=== PATIENT | male | born 1985 | race Caucasian/White ===

== ENCOUNTER 2016-11-26 23:00 | Inpatient (IN) | payer OTHER ==
--- NOTE | ~2016-11-26 | PA ---
Unit #: [id number] #: [id number] Patient: LALA MOSS [id number] [place] [address] [id number] MR#: [id number] NAME: LALA MOSS. ROOM: P214 Age: 31 Sex: M Admission Date: 11/27/2016 : 1985 Date of Assessment: 11/27/2016 Attending Physician: Mervin Ocasio M.D. Admitting Physician: Mervin Ocasio M.D. Primary Care Physician: Primary Care Physician No PSYCHIATRIC ASSESSMENT DATE OF SERVICE 11/27/2016. INFORMANTS The patient, reliable; [facility], reliable. CHIEF COMPLAINT Suicidal ideation and drug use. HISTORY OF PRESENT ILLNESS Mr. Jara is a 31-year-old man who was discharged from this facility back in May. He reports that he broke up with a female friend about 6 weeks ago and has began using meth and occasional heroin. He has suicidal ideation with a plan to overdose on heroin and was admitted for stabilization. PAST PSYCHIATRIC HISTORY As noted, the patient was last admitted here in May of this year. He is not currently taking any medications. FAMILY PSYCHIATRIC HISTORY None reported. SOCIAL HISTORY The patient is temporarily unemployed and homeless. He has a history of completing 28-day programs, but has difficulty maintaining sobriety. He is currently staying with friends. PAST MEDICAL HISTORY No chronic medical problems. MEDICATIONS None currently. ALLERGIES No known medication allergies. SUBSTANCE ABUSE HISTORY As noted above. MENTAL STATUS EXAMINATION Mr. Jara presented as a mildly disheveled man who appeared his stated age. He was cooperative with the examination. Speech was easily Unit #: [id number] #: [id number] Patient: LALA MOSS understood. Musculoskeletal examination was calm. Mood was depressed and irritable with a congruent affect. He was alert and fully oriented. Memory and concentration were intact. Thought processes were logical with no psychosis. He had suicidal ideation with a plan to overdose on heroin and could not contract for safety. Insight and judgment, fair. Fund of knowledge and abstraction, intact. ASSETS AND LIABILITIES Assets; the patient presents voluntarily for treatment and has knowledge of local resources. Liabilities; include ongoing substance use. ADMITTING DIAGNOSES AXIS I: Opioid dependence withdrawal, uncomplicated; amphetamine abuse; major depression. AXIS II: No diagnosis. AXIS III: None acute. AXIS IV: AXIS V: PSYCHIATRIC PLAN The patient was admitted and placed on suicide precautions and the opioid detox protocol. Effexor and buspirone will be restarted. He will monitor for response. Treatment goals are resolution of SI, establishment of sobriety, improvement in insight, and improvement in coping skills. DISCHARGE PLANNING Follow up with [facility]. ESTIMATED LENGTH OF STAY 5 days. Dictated by... Mervin Ocasio M.D. SCOTT/gabi TD: 02/01/2017 05:03 JOB #: [id number] PSYCHIATRIC ASSESSMENT Page 1 of 1 X Mervin Ocasio MD X PSYCHIATRIC ASSESSMENT
--- NOTE | ~2016-11-26 | DS ---
Unit #: [id number] #: [id number] Patient: LALA HENDRIX [id number] [place] [address] [id number] I MR#: [id number] NAME: LALA HENDRIX. ROOM: P214 Age: 31 Sex: M Admission Date: 11/27/2016 : 1985 Discharge Date: 12/03/2016 Attending Physician: Mervin Ocasio M.D. Primary Care Physician: Primary Care Physician No DISCHARGE SUMMARY REASON FOR ADMISSION Mr. Hendrix is a 31-year-old man with a history of depression and chemical dependency who was recently discharged from this facility but has relapsed and become noncompliant with medications. He had suicidal ideation to overdose on heroin was admitted for stabilization. LABORATORY DATA Please see the hospital chart. HOSPITAL COURSE Patient was admitted and placed on suicide precautions. His venlafaxine and buspirone were restarted and he was placed on the detox protocol. He had no significant adverse events and needed no medical interventions. He participated briefly in appropriate unit groups and activities and on the day of discharge was able to contract for safety. DISCHARGE DIAGNOSIS AXIS I: Opioid dependence, major depression. AXIS II: No diagnosis. AXIS III: None acute. INSTRUCTION TO PATIENT Follow up with community mental health and primary care physician for medication management, psychotherapy and psychiatric care. DISCHARGE MEDICATIONS 1. Effexor XR 75 mg daily for depression 2. Buspirone 5 mg three times day for anxiety Trazodone 50 mg at bedtime as needed for insomnia CONDITION ON DISCHARGE Improved. PROGNOSIS Fair to good. DIET AND ACTIVITY Per primary care doctor Dictated by... Mervin Ocasio M.D. [facility]/angelica Unit #: [id number] #: [id number] Patient: LALA HENDRIX TD: 02/01/2017 01:39 JOB #: [id number] DISCHARGE SUMMARY Page 1 of 1 X Mervin Ocasio MD X DISCHARGE SUMMARY
--- NOTE | ~2016-11-26 | A ---
[facility] Nutrition Therapy DATE: 11/28/16 Patient: LALA MOSS Physician: BRITNEY Address: [address] [place] [address] Room/Bed: [address], Zip: [place] [address] Admit Date: 11/27/16 Date of : [birth year] Height: 6 0 Weight: [phone] NUTRITIONAL ASSESSMENT: REASON: NUTRITION RISK POINT- UNINTENTIONAL WEIGHT LOSS PATIENT ADMITTED FOR DETOX, SI, AND DEPRESSION PMH: LONG HX POLYSUBSTANCE ABUSE, HEP C Anthropometrics: HT: 6'0", WT: 180#, BMI: 24.4 Labs: 11/27/16- NUTRITIONAL LABS WNL Meds: EFFEXOR, DETOX PROTOCOL Assessment: PATIENT IS A 31 Y/O MALE ADMITTED FOR DETOX, SI, AND DEPRESSION. PATIENT IS CURRENTLY UNEMPLOYED, HOMELESS, SMOKES 1 PPD, DRINKS A FIFTH ETOH DAILY, HAS DAILY METH USE, AND FREQUENT MARIJUANA USE. PATIENT HAS BEEN NON-COMPLIANT WITH HIS MEDICATIONS PRIOR TO ADMIT AND HE HAS A HX OF INPATIENT CHEMICAL DEPENDENCY TREATMENT. PATIENT STATED A FAIR APPETITE WITH A 20# WEIGHT LOSS OVER LAST SEVERAL MONTHS. WEIGHT HX PER MEDITECH SHOWS NO WEIGHT HOSTLER HELPER LAST 6 MONTHS, AND HIS UBW SEEMS TO BE BETWEEN 175-185 OVER LAST 9 YEARS. NURSING REPORTS GOOD PO INTAKES. THERE ARE NO SKIN OR GI ISSUES NOTED ATT. PATIENT IS ON A REGULAR DIET WITH LARGE PORTION ENTREES. Dx: UNINTENTIONAL WEIGHT LOSS R/T CURRENT CONDITION, DETOX AEB SELF-REPORTED WEIGHT LOSS, FAIR APPETITE, NUTRITIONAL RISK POINT Intervention: REGULAR DIET, MEDS PER MD, PSYCH, DETOX Monitoring, Evaluation and Goals: 1. ADEQUATE PO INTAKES >50% OF MEALS 2. PREVENT, CORRECT MICRO/MACRO NUTRIENT DEFICIENCIES MONITOR: WEIGHTS, LABS, PO/FLUID INTAKES Recommendations: 1. CONTINUE REGULAR DIET WITH LARGE PORTION ENTREES TOLERATED 2. ENCOURAGE ADEQUATE PO AND FLUID INTAKES 3. OBTAIN WEIGHTS ROUTINELY (EVERY 3-4 DAYS) RD TO F/U PER PROTOCOL AND PRN R/T PATIENT MILDLY COMPROMISED [facility] Nutrition Therapy DATE: 11/28/16 Patient: LALA MOSS Physician: BRITNEY Address: [address] [place] [address] Room/Bed: [address], Zip: [place] [address] Admit Date: 11/27/16 Date of : [birth year] Height: 6 0 Weight: [phone] Respectfully, GERMÁN MCCARTY RD, LD [employer] [facility] cc: client file
--- NOTE | ~2016-11-26 | HP ---
Unit #: [id number] #: [id number] Patient: LALA MOSS [id number] [place] [address] [id number] I MR#: [id number] NAME: LALA MOSS. ROOM: P214 Age: 31 Sex: M Admission Date: 11/27/2016 : 1985 Attending Physician: Mervin Ocasio M.D. Admitting Physician: Mervin Ocasio M.D. Primary Care Physician: Primary Care Physician No HISTORY AND PHYSICAL HISTORY OF PRESENT ILLNESS Lala is a 31 year old admitted to [address] [place] [address] because of his continued drug use. He shoots heroin and methamphetamine and abuses alcohol. PAST MEDICAL HISTORY 1. Long history of alcohol abuse. 2. History of illicit substance abuse to include IV heroin and meth. 3. Hepatitis C. PAST SURGICAL HISTORY 1. Right hand. 2. Appendectomy. ALLERGIES No known drug allergies. SOCIAL HISTORY Smokes one pack per day. Drinks alcohol rarely. Admits to a long history of illicit substance abuse to include IV heroin and meth. FAMILY HISTORY Medically noncontributory. REVIEW OF SYSTEMS CONSTITUTIONAL: No fever or chills. HEENT: Denies any sore throat, ear pain or runny nose. CARDIOVASCULAR: Denies chest pain, irregular heart rhythm or palpitations. CHEST: Denies shortness of breath or cough. No hemoptysis. GASTROINTESTINAL: Denies nausea, vomiting, diarrhea or chronic constipation. ENDOCRINE: Denies history of increased thirst or urination. No recent significant weight loss or gain. GENITOURINARY: Denies dysuria, frequency, or hematuria. SKIN: Denies any rashes. HEMATOLOGIC: Denies history of increased bleeding or bruising. MUSCULOSKELETAL: Denies any hot, swollen joints. No generalized muscle pain. NEUROLOGIC: Denies problems with vision or speech. No frequent, severe headaches. No numbness, tingling or weakness in any extremities. Denies loss of bladder or bowel control. CURRENT MEDICATIONS 1. Detox protocol. Unit #: [id number] #: [id number] Patient: LALA MOSS 2. Effexor XR 75 mg q. day. 3. BuSpar 5 mg t.i.d. 4. Nicotine patch 14 mg q. day. PHYSICAL EXAMINATION GENERAL: Alert, well nourished. No apparent distress. VITAL SIGNS: Blood pressure 100/60, heart rate 80, respirations 16, and temperature 98.6. WEIGHT: 180. HEIGHT: 6 feet 0 inches. SKIN: Warm and dry without rash or lesion. HEENT: Normocephalic. TMs not viewed. Oral and nasal passages clear. Conjunctivae clear. PERRLA. EOMs intact. NECK: Supple without lymphadenopathy or thyromegaly. HEART: Regular rate and rhythm without murmur. LUNGS: Clear. ABDOMEN: Soft, nontender. : Not done. EXTREMITIES: No evidence of cyanosis, clubbing or edema. Moves all without focal deficit. NEUROLOGICAL: Grossly within normal limits. Cranial Nerves: II: Visual dooley are intact. III, IV AND : Extraocular movements are intact. Pupils are equal, round and reactive to light. V: Facial sensation is grossly normal. VII: Facial movements and expression are normal. VIII: Auditory acuity grossly intact. IX, X: Uvula is midline. Phonation is normal. XI: Patient shrugs shoulders and turns head normally. XII: Tongue protrudes in the midline. Sensory and Motor Function: Sensory and motor sensation is grossly normal. Motor: moves all extremities well. Coordination: Gait is normal. Deep Tendon Reflexes: Intact. IMPRESSION Psychiatric admission. RECOMMENDATIONS PSYCHIATRIC: Per psychiatrist. MEDICAL: I see no contraindication to participate in this facility's activities. MEDICAL PROGNOSIS Good. MEDICAL CONDITION Stable. Dictated by... Lucina Christianson P.A.-C. for Jovanny Meek/martin TD: 11/27/2016 14:52 JOB #: [id number] Unit #: [id number] #: [id number] Patient: LALA MOSS HISTORY AND PHYSICAL Page 1 of 1 X Lucina Christianson HISTORY AND PHYSICAL
[~2016-11-26 23:00] MED LIST: AUGMENTIN PO; LORTAB 7.5-5001 TAB PO; PEN-VEE K PO; TYLOX 5/500 CAP1 CAP PO; VICODIN 5/500 T1 TAB PO
[2016-11-27 12:37] LABS: BASOPHIL% 0.5 % (0-2.5); EOSINOPHIL# 0.3 X10e3 (0-0.7); EOSINOPHIL% 4.4 % (0.0-7.0); HEMATOCRIT 42.7 % (38.0-50.0); HEMOGLOBIN 14.1 gm/dL (13.0-16.0); LYMPHOCYTE# 2.4 X10e3 (1.0-3.5); LYMPHOCYTE% 35.6 % (17.0-45.0); MEAN CELL VOLUME 91.5 FL (83-96); MEAN CORPUSCULAR HEMOGLOBIN 30.2 PG (28-34); MEAN CORPUSCULAR HGB CONC 33.1 g/dL (30-36); MEAN PLATELET VOLUME 8.1 FL (6.5-11.5); MONOCYTE# 0.6 X10e3 (0-1.0); NEUTROPHIL# 3.5 X10e3 (1.5-7.1); NEUTROPHIL% 50.5 % (40-75); PLATELET COUNT 247 X10e3 (140-420); RED BLOOD COUNT 4.67 X10e (3.90-5.60); RED CELL DISTRIBUTION WIDTH 13.7 % (11.0-15.5); WHITE BLOOD COUNT 6.9 X10e3 (4.0-10.5)
[2016-11-27 12:44] LABS: DIFF IND NO
[2016-11-27 13:38] LABS: ALBUMIN SERUM 3.7 g/dL (3.5-5.0); BILIRUBIN,TOTAL 0.4 mg/dL (0.2-2.0); BUN/CREATININE RATIO 22.22; CALCIUM SERUM 9.1 mg/dL (8.4-10.2); CREATININE SERUM 0.9 mg/dL (0.6-1.4); POTASSIUM 4.5 mmol/L (3.5-5.1); PROTEIN TOTAL SERUM 6.5 g/dL (6.0-8.3)
[2016-11-28 09:52] LABS: URINE APPEARANCE CLEAR; URINE BILIRUBIN NEG (NEG); URINE BLOOD NEG (NEG); URINE COLOR YELLOW; URINE GLUCOSE NEG (NEG); URINE KETONE TRACE (NEG); URINE LEUKOCYTE ESTERASE NEG (NEG); URINE NITRATE NEG (NEG); URINE PH 5.5 (5-8); URINE PROTEIN NEG (NEG)
[2016-11-28 11:33] LABS: AMPHETAMINE POS (NEG); BARBITURATES NEG (NEG); BENZODIAZEPINES NEG (NEG); COCAINE NEG (NEG); MARIJUANA POS (NEG); OPIATES NEG (NEG); TRICYCLIC ANTIDEPRESSANTS NEG (NEG); U METHADONE NEG (NEG)
== END 2016-12-03 12:15 | disposition home or self-care (01) | DRG 897 ==
LOC: P2S 11-27 01:44
PROVIDERS: Psychiatry & Neurology Psychiatry
PROC: HZ2ZZZZ Detoxification Services for Substance Abuse Treatment (ICD-10-PCS; principal; 2016-11-27)
DX: F11.23 Opioid dependence with withdrawal (principal); R45.851 Suicidal ideations; F15.20 Other stimulant dependence, uncomplicated; F17.210 Nicotine dependence, cigarettes, uncomplicated; F32.9 Major depressive disorder, single episode, unspecified; F41.9 Anxiety disorder, unspecified; Z56.0 Unemployment, unspecified; Z59.0 Homelessness
CPT/HCPCS: 80053; 80307; 81003; 85025; 86592

== ENCOUNTER 2017-02-28 15:00 | Inpatient (IN) | payer OTHER ==
[~2017-02-28] VITALS: Ht 182.9 cm; Wt 79.4 kg
--- NOTE | ~2017-02-28 | HP ---
Unit #: [id number] #: [id number] Patient: LALA MOSS [id number] [place] [address] [id number] I MR#: [id number] NAME: LALA MOSS. ROOM: [facility] Age: 31 Sex: M Admission Date: 02/28/2017 : 1985 Attending Physician: Mervin Ocasio M.D. Admitting Physician: Mervin Ocasio M.D. Primary Care Physician: Primary Care Physician No HISTORY AND PHYSICAL HISTORY OF PRESENT ILLNESS Lala is a 31 year old admitted to [facility] because of his continued illicit substance abuse which includes IV heroin and methamphetamine. PAST MEDICAL HISTORY 1. Long history of illicit substance abuse to include IV heroin and meth. 2. History of alcohol abuse. 3. Hepatitis C. PAST SURGICAL HISTORY 1. Right hand. 2. Appendectomy. ALLERGIES No known drug allergies. SOCIAL HISTORY He smokes 1 pack per day. Drinks alcohol rarely. Admits to a long history of illicit substance abuse to include IV heroin and meth. FAMILY HISTORY Medically noncontributory. REVIEW OF SYSTEMS CONSTITUTIONAL: No fever or chills. HEENT: Denies any sore throat, ear pain or runny nose. CARDIOVASCULAR: Denies chest pain, irregular heart rhythm or palpitations. CHEST: Denies shortness of breath or cough. No hemoptysis. GASTROINTESTINAL: Denies nausea, vomiting, diarrhea or chronic constipation. ENDOCRINE: Denies history of increased thirst or urination. No recent significant weight loss or gain. GENITOURINARY: Denies dysuria, frequency, or hematuria. SKIN: Denies any rashes. HEMATOLOGIC: Denies history of increased bleeding or bruising. MUSCULOSKELETAL: Denies any hot, swollen joints. No generalized muscle pain. NEUROLOGIC: Denies problems with vision or speech. No frequent, severe headaches. No numbness, tingling or weakness in any extremities. Denies loss of bladder or bowel control. CURRENT MEDICATIONS Unit #: [id number] #: [id number] Patient: LALA MOSS 1. Detox protocol. 2. Effexor 75 mg daily. PHYSICAL EXAMINATION GENERAL: Alert, well-nourished, in no apparent distress. VITAL SIGNS: Blood pressure 110/54, heart rate 80, respirations 16, temperature 98.6. WEIGHT: 175. HEIGHT: 6 feet 0. SKIN: Warm and dry without rash. He does have multiple "sores" along his face and arms. There is no increased redness, swelling, heat or pus noted. HEENT: Normocephalic. TMs not viewed. Oral and nasal passages clear. Conjunctivae clear. PERRLA. EOMs intact. NECK: Supple without lymphadenopathy or thyromegaly. HEART: Regular rate and rhythm without murmur. LUNGS: Clear. ABDOMEN: Soft, nontender. : Not done. EXTREMITIES: No evidence of cyanosis, clubbing or edema. Moves all without focal deficit. NEUROLOGICAL: Grossly within normal limits. Cranial Nerves: II: Visual dooley are intact. III, IV AND : Extraocular movements are intact. Pupils are equal, round and reactive to light. V: Facial sensation is grossly normal. VII: Facial movements and expression are normal. VIII: Auditory acuity grossly intact. IX, X: Uvula is midline. Phonation is normal. XI: Patient shrugs shoulders and turns head normally. XII: Tongue protrudes in the midline. Sensory and Motor Function: Sensory and motor sensation is grossly normal. Motor: moves all extremities well. Coordination: Gait is normal. Deep Tendon Reflexes: Intact. IMPRESSION 1. Psychiatric admission. 2. History of drug use to include IV meth. 3. Multiple sores from where he picks when he is high. RECOMMENDATIONS PSYCHIATRIC: Per psychiatrist. MEDICAL: 1. See no contraindication to participate in facility's activities. 2. Detox per protocol. 3. Keep the "sores" clean with soap and water. MEDICAL PROGNOSIS Good. MEDICAL CONDITION Stable. Dictated by... Lucina Christianson P.A.-C. for Jovanny Meek/[facility] Unit #: [id number] #: [id number] Patient: LALA MOSS TD: 03/01/2017 19:43 JOB #: [id number] HISTORY AND PHYSICAL Page 1 of 1 X Lucina Christianson HISTORY AND PHYSICAL
--- NOTE | ~2017-02-28 | PN ---
Unit #: [id number] #: [id number] Patient: LALA MOSS [id number] [facility] [address] [place] [address] [id number] I MR#: [id number] NAME: LALA MOSS ROOM: [facility] Age: 31 Sex: M Admission Date: 02/28/2017 : 1985 Attending Physician: Mervin Ocasio M.D. Admitting Physician: Jovanny Kat PROGRESS NOTES DATE OF SERVICE: 03/04/2017 DISCUSSION Kleber continues to show improvement today. He is actively working toward long-term placement in a chemical dependence facility and is participating appropriately in groups and activities. He is alert and fully oriented with a brighter affect and decreased suicidal ideation. ASSESSMENT Major depression and opioid abuse. PLAN Continue current treatment plan and work toward discharge. Dictated by... Jovanny KatH/gabi TD: 03/06/2017 11:57 JOB #: [id number] [facility] PROGRESS NOTES Page 1 of 1 X Mervin Ocasio MD PROGRESS NOTE
--- NOTE | ~2017-02-28 | PA ---
Unit #: [id number] #: [id number] Patient: LALA HENDRIX [id number] [facility] [address] [place] [address] [id number] MR#: [id number] NAME: LALA HENDRIX. ROOM: P177 Age: 31 Sex: M Admission Date: 02/28/2017 : 1985 Date of Assessment: 03/01/2017 Attending Physician: Mervin Ocasio M.D. Admitting Physician: Mervin Ocasio M.D. Primary Care Physician: Primary Care Physician No PSYCHIATRIC ASSESSMENT DATE OF SERVICE 03/01/2017 INFORMANTS The patient reliable; [facility] records, reliable. CHIEF COMPLAINT Heroin abuse and suicidal ideation. HISTORY OF PRESENT ILLNESS Mr. Hendrix is a 31-year-old man who reports he has been using heroin and meth as well as IV use and active withdrawal, had suicidal ideation stating that he "had to be better than in school." He was unable to contract for safety and was admitted for detox and stabilization. PAST PSYCHIATRIC HISTORY Last admission was in 11/2016. He is not currently taking psychiatric medications. FAMILY PSYCHIATRIC HISTORY None reported. SOCIAL HISTORY The patient is erratically homeless and has been currently unemployed. He has had difficulty maintaining sobriety, despite completing 28-day programs. PAST MEDICAL HISTORY None. MEDICATIONS None. ALLERGIES No known medication allergies. SUBSTANCE ABUSE HISTORY As noted above. MENTAL STATUS EXAMINATION Lala presented as a mildly disheveled man, appearing his stated age. He was cooperative with the examination. Mood was depressed with a congruent affect. He was alert and fully oriented. Memory and Unit #: [id number] #: [id number] Patient: LALA HENDRIX concentration were fair. Thought processes were goal directed with no active psychosis. He did report suicidal ideation and could not contract for safety outside the hospital. Insight and judgment, fair. Fund of knowledge and abstraction, fair. ASSETS AND LIABILITIES Assets; the patient presents voluntarily for treatment and is interested in long-term care. Liabilities; include chronic substance abuse and lack of current psychiatric treatment plan. ADMITTING DIAGNOSES AXIS I: Major depression; opiate dependence; amphetamine abuse. AXIS II: No diagnosis. AXIS III: None acute. AXIS IV: AXIS V: PSYCHIATRIC PLAN The patient was admitted and placed on suicide precautions. His home medications will be restarted, and physical examination and laboratory studies will be conducted and reviewed. TREATMENT GOALS Resolution of SI, establishment of sobriety, improvement in insight, and improvement in coping skills. DISCHARGE PLANNING Follow up with [facility]. ESTIMATED LENGTH OF STAY 5 days. Dictated by... Mervin Ocasio M.D. SCOTT/gabi TD: 03/04/2017 12:42 JOB #: [id number] PSYCHIATRIC ASSESSMENT Page 1 of 1 X Mervin Ocasio MD X PSYCHIATRIC ASSESSMENT
--- NOTE | ~2017-02-28 | DS ---
Unit #: [id number] #: [id number] Patient: LALA MOSS [id number] [facility] [address] [place] [address] [id number] MR#: [id number] NAME: LALA MOSS. ROOM: [facility] Age: 31 Sex: M Admission Date: 02/28/2017 : 1985 Discharge Date: 03/05/2017 Attending Physician: Mervin Ocasio M.D. Primary Care Physician: No Primary Care Physician DISCHARGE SUMMARY REASON FOR ADMISSION Lala is a 31-year-old man who reports heroin and meth and IV use. He had some suicidal ideation and was admitted for stabilization. LABORATORY Please see hospital chart. HOSPITAL COURSE Patient was admitted and placed on suicide precautions. Antidepressant medication was started and he (1) from opiate detox protocol. He had mild to moderate detox symptomatology and participated appropriately in unit groups and activities. On the date of discharge he had placement at a long-term care facility and was discharged in stable condition. DISCHARGE DIAGNOSIS Alta I Major depression. Opiate dependence. AXIS II: No diagnosis. AXIS III: None acute. PSYCHIATRIC PLAN Patient was discharged to the care of his primary care physician and will return to [facility] in [place], [place]. DISCHARGE MEDICATIONS Effexor XR 75 mg daily for depression, BuSpar 5 mg three times for anxiety. Trazodone 50 mg at bedtime as needed for insomnia. CONDITION ON DISCHARGE Improved. PROGNOSIS Good. DIET AND ACTIVITY Per primary care doctor. Dictated by... Mervin Ocasio M.D. [facility]/gz TD: 03/05/2017 13:26 JOB #: [id number] Unit #: [id number] #: [id number] Patient: LALA MOSS DISCHARGE SUMMARY Page 1 of 1 X Mervin Ocasio MD X DISCHARGE SUMMARY
--- NOTE | ~2017-02-28 | PN ---
Unit #: [id number] #: [id number] Patient: LALA MOSS [id number] [facility] [address] [place] [address] [id number] I MR#: [id number] NAME: LALA MOSS. ROOM: [facility] Age: 31 Sex: M Admission Date: 02/28/2017 : 1985 Attending Physician: Mervin Ocasio M.D. Admitting Physician: Mervin Ocasio M.D. Primary Care Physician: Primary Care Physician Shaista MERCHANT PROGRESS NOTES DATE 03/02/2017 DISCUSSION Lala continues to have active detox symptoms today. His mood is a little better with a brighter affect. He is alert and fully oriented with no psychosis and no SI. ASSESSMENT 1. Major depression. 2. Opiate dependence. PLAN Continue detox protocol and current treatment plan. Dictated by... Jovanny Kat/lali TD: 03/06/2017 22:06 JOB #: [id number] [facility] PROGRESS NOTES Page 1 of 1 X Mervin Ocasio MD PROGRESS NOTE
[2017-03-01 09:39] LABS: BASOPHIL# 0.1 X10e3 (0-0.3); EOSINOPHIL# 0.6 X10e3 (0-0.7); EOSINOPHIL% 9.3 % (0.0-7.0); HEMATOCRIT 41.4 % (38.0-50.0); HEMOGLOBIN 14.1 gm/dL (13.0-16.0); LYMPHOCYTE# 2.3 X10e3 (1.0-3.5); MEAN CELL VOLUME 89.3 FL (83-96); MEAN CORPUSCULAR HEMOGLOBIN 30.4 PG (28-34); MONOCYTE# 0.6 X10e3 (0-1.0); MONOCYTE% 9.6 % (3.0-12.0); NEUTROPHIL# 2.4 X10e3 (1.5-7.1); NEUTROPHIL% 41.1 % (40-75); PLATELET COUNT 243 X10e3 (140-420); RED BLOOD COUNT 4.63 X10e (3.90-5.60); RED CELL DISTRIBUTION WIDTH 13.6 % (11.0-15.5); WHITE BLOOD COUNT 5.9 X10e3 (4.0-10.5)
[2017-03-01 09:47] LABS: ALBUMIN SERUM 3.7 g/dL (3.5-5.0); BILIRUBIN,TOTAL 0.7 mg/dL (0.2-2.0); BUN/CREATININE RATIO 14.44; CALCIUM SERUM 9.2 mg/dL (8.4-10.2); CREATININE SERUM 0.9 mg/dL (0.6-1.4); POTASSIUM 4.3 mmol/L (3.5-5.1); PROTEIN TOTAL SERUM 6.5 g/dL (6.0-8.3)
[2017-03-01 09:57] LABS: DIFF IND NO
[2017-03-02 14:15] LABS: AMPHETAMINE POS (NEG); BARBITURATES NEG (NEG); BENZODIAZEPINES POS (NEG); COCAINE NEG (NEG); MARIJUANA POS (NEG); OPIATES NEG (NEG); TRICYCLIC ANTIDEPRESSANTS NEG (NEG); U METHADONE NEG (NEG)
== END 2017-03-05 10:20 | disposition home or self-care (01) | DRG 897 ==
LOC: P1E 19:21
PROVIDERS: Psychiatry & Neurology Psychiatry
PROC: HZ2ZZZZ Detoxification Services for Substance Abuse Treatment (ICD-10-PCS; principal; 2017-02-28)
DX: F11.20 Opioid dependence, uncomplicated (principal); R45.851 Suicidal ideations; F32.9 Major depressive disorder, single episode, unspecified; F15.10 Other stimulant abuse, uncomplicated; Z59.0 Homelessness; Z86.19 Personal history of other infectious and parasitic diseases; F17.200 Nicotine dependence, unspecified, uncomplicated
CPT/HCPCS: 80053; 80307; 85025; 86592